=== PATIENT | female | born 1940 | race Two or more races ===

== ENCOUNTER 2023-09-10 20:20 | Inpatient (IN) | payer MEDICARE, OTHER ==
[~2023-09-10] VITALS: Ht 142.2 cm; Wt 53.1 kg
[2023-09-10 21:30] VITALS: BP 114/61; TEMP 98.1; O2SAT 96
[2023-09-10] MEDS ORDERED: CYCL30DR EACHEYE (21:53)
[2023-09-10] MEDS ORDERED: BRIN8DRO OP (21:53)
[2023-09-10] MEDS ORDERED: CEPH500C2 PO (21:53)
[2023-09-10] MEDS ORDERED: VALB40CA2 PO (22:40)
[2023-09-10] MEDS ORDERED: LACT-239 PO (22:40)
[2023-09-10] MEDS ORDERED: PSYL822P6 PO (22:40)
[2023-09-10] MEDS ORDERED: FOLI0.4T6 PO (22:40)
[2023-09-10] MEDS ORDERED: LATA7.5D EACHEYE (22:40)
[2023-09-10] MEDS ORDERED: DOCU250C15 PO (22:40)
[2023-09-10] MEDS ORDERED: ACET650T10 PO (22:40)
[2023-09-10] MEDS ORDERED: MIRT-93 PO (22:40)
[2023-09-10] MEDS ORDERED: MV-M1CAP15 PO (22:40)
[2023-09-10] MEDS ORDERED: ONDA-104 PO (22:40)
[2023-09-10] MEDS ORDERED: PANT40TA2 PO (22:40)
[2023-09-10] MEDS ORDERED: MEMA10TA PO (22:40)
[2023-09-10] MEDS ORDERED: FURO40TA5 PO (22:40)
[2023-09-10] MEDS ORDERED: DOCU100T2 PO (22:40)
[2023-09-10] MEDS ORDERED: FERR325T24 PO (22:40)
[2023-09-10] MEDS ORDERED: QUET50TA PO (22:40)
[2023-09-10] MEDS ORDERED: BENZ200C53 PO (22:40)
[2023-09-11] MEDS ORDERED: REMEDY ESSENTIAL ZINC PASTE 113 GM TOP PRN (04:15)
[2023-09-11 06:40] VITALS: BP 135/50; TEMP 99.5; O2SAT 96
[2023-09-11] MEDS ORDERED: BENZONATATE PO PRN (10:30)
[2023-09-11] MEDS ORDERED: PSYLLIUM HUSK 3.4 GM PO PRN (10:30)
[2023-09-11] MEDS ORDERED: DOCUSATE SODIUM 250 MG CAPSULE PO PRN (10:30)
[2023-09-11] MEDS ORDERED: [UNRECOGNIZED DRUG - OTHER] PO PRN (10:30)
[2023-09-11] MEDS ORDERED: ONDANSETRON HCL 4 MG TABLET PO PRN (12:00)
[2023-09-11] MEDS ORDERED: FOLIC ACID 0.4 MG TABLET PO SCH (12:52)
[2023-09-11] MEDS: PANTOPRAZOLE SODIUM 40 MG TABLET.DR PO SCH (13:37)
[2023-09-11] MEDS: FERROUS SULFATE 325 MG TABEC PO SCH (13:37)
[2023-09-11] MEDS: FUROSEMIDE 40 MG TABLET PO SCH (13:37)
[2023-09-11] MEDS: FOLIC ACID 1 MG TABLET PO SCH (13:48)
[2023-09-11] MEDS: QUETIAPINE FUMARATE 25 MG TABLET PO SCH (14:49)
[2023-09-11] MEDS: DOCUSATE SODIUM 100 MG CAPSULE PO SCH (14:49)
[2023-09-11 15:58] VITALS: BP 120/62; TEMP 100.1; O2SAT 100
[2023-09-11] MEDS: ACETAMINOPHEN 325 MG TABLET PO PRN (17:02)
[2023-09-11] MEDS: MEMANTINE HCL 10 MG TABLET PO SCH (17:02)
[2023-09-11] MEDS: CEphaleXIN 500 MG CAPSULE PO SCH (17:03)
[2023-09-11] MEDS: COMPLEAT MODIFIED FORMULA 1000 ML LIQUID PO SCH (17:12)
[2023-09-11] MEDS: MIRTAZAPINE 15 MG TABLET PO SCH (18:49)
[2023-09-11] MEDS ORDERED: VALBENAZINE TOSYLATE 40 MG PO SCH (21:00)
[2023-09-11] MEDS ORDERED: Medication Not On Formulary EA (Quetiapine Fumarate (Seroquel) 50 MG) PO SCH (21:00)
[2023-09-11 21:20] VITALS: BP 103/42; TEMP 98.6; O2SAT 94
[2023-09-11] MEDS: BENZONATATE 100 MG CAPSULE PO PRN (23:49)
[2023-09-12 06:23] VITALS: BP 93/44; TEMP 98.8; O2SAT 95
[2023-09-12] MEDS ORDERED: Medication Not On Formulary EA (Docusate Sodium 100 MG) PO SCH (09:00)
[2023-09-12 16:00] VITALS: BP 112/40; TEMP 98; O2SAT 98
[2023-09-12 20:00] VITALS: BP 135/44; TEMP 97.9; O2SAT 92
[2023-09-13 06:00] VITALS: BP 109/65; TEMP 98.1; O2SAT 98
[2023-09-13 10:46] LABS: BASOPHILS # (AUTO) 0.1 K/UL (0.0-0.2); BASOPHILS % (AUTO) 1.1 % (0.0-2.0); DIFFERENTIAL COMMENT 0; EOSINOPHILS # (AUTO) 0.3 K/uL (0.0-0.7); EOSINOPHILS % (AUTO) 5.1 % (0.0-7.0); HEMATOCRIT 27.2 % (31.2-41.9); HEMOGLOBIN 8.4 g/dL (10.9-14.3); LYMPHOCYTES # (AUTO) 1.1 K/uL (0.8-4.8); LYMPHOCYTES % (AUTO) 23.2 % (20.5-51.5); MEAN CORPUSCULAR HEMOGLOBIN 25.6 uug (24.7-32.8); MEAN CORPUSCULAR HGB CONC 31 g/dL (32.3-35.6); MONOCYTES # (AUTO) 0.3 K/uL (0.1-1.30); MONOCYTES % (AUTO) 5.4 % (0.0-11.0); NEUTROPHILS # (AUTO) 3.2 K/uL (1.8-8.9); NEUTROPHILS % (AUTO) 65.2 % (38.5-71.5); PLATELET COUNT (AUTO) 243 K/uL (179-408); RED BLOOD CELL COUNT(AUTO) 3.28 MIL/uL (3.63-4.92); RED CELL DISTRIBUTION WIDTH 16.3 % (12.3-17.7)
[2023-09-13 10:57] LABS: CALCIUM 9.2 mg/dL (8.5-10.1); CREATININE 1.1 mg/dL (0.6-1.3); MAGNESIUM 2.7 mg/dL (1.8-2.4); PHOSPHOROUS 3.6 mg/dL (2.5-4.9); POTASSIUM 3.7 mmol/L (3.5-5.1)
[2023-09-13 15:49] VITALS: BP 130/59; TEMP 98.1; O2SAT 96
[2023-09-13 20:00] VITALS: BP 133/51; TEMP 98.3; O2SAT 92
[2023-09-14 06:35] VITALS: BP 145/62; TEMP 99.2; O2SAT 96
[2023-09-14 16:00] VITALS: BP 122/57; TEMP 97.2; O2SAT 97
[2023-09-14 20:00] VITALS: TEMP 98.9
[2023-09-15] VITALS: TEMP 98
[2023-09-15 04:00] VITALS: TEMP 98.7
[2023-09-15] MEDS: DOCUSATE SODIUM 250 MG CAPSULE PO PRN (04:09)
[2023-09-15 06:00] VITALS: TEMP 98.8
[2023-09-15] MEDS: PSYLLIUM SEED PACKET PO PRN (06:14)
[2023-09-15 10:00] VITALS: BP 134/61; TEMP 98; O2SAT 95
[2023-09-15 16:15] VITALS: BP 122/68; TEMP 98; O2SAT 96
[2023-09-15 20:58] VITALS: BP 108/58; TEMP 98.8; O2SAT 93
[2023-09-16 06:34] VITALS: BP 123/60; TEMP 97.8
[2023-09-16 11:53] VITALS: TEMP 97.9
[2023-09-16 15:44] VITALS: BP 98/53; TEMP 97.2; O2SAT 93
[2023-09-16 15:48] VITALS: BP 106/46; TEMP 97.6
[2023-09-16] MEDS: ENSURE WITH FIBER 237 ML LIQUID (CHOCOLATE) PO SCH (17:32)
[2023-09-16 20:00] VITALS: TEMP 98.1
[2023-09-17 06:07] VITALS: BP 140/72; TEMP 98.2; O2SAT 94
[2023-09-17 13:37] LABS: CALCIUM 9.6 mg/dL (8.5-10.1); CREATININE 1.2 mg/dL (0.6-1.3); MAGNESIUM 2.9 mg/dL (1.8-2.4); POTASSIUM 4.1 mmol/L (3.5-5.1)
[2023-09-17 16:29] VITALS: BP 124/58; TEMP 98; O2SAT 95
[2023-09-17] MEDS: MEGESTROL ACETATE 20 MG TABLET PO SCH (17:38)
[2023-09-17 20:00] VITALS: BP 123/63; TEMP 98; O2SAT 94
[2023-09-18 16:49] VITALS: BP 105/49; TEMP 97.7; O2SAT 94
[2023-09-18 20:20] VITALS: BP 103/45; TEMP 98; O2SAT 95
[2023-09-18] MEDS: INGREZZA 40 MG PO SCH (21:25)
[2023-09-19 05:45] VITALS: BP 114/52; TEMP 98.6; O2SAT 97
[2023-09-19 12:00] VITALS: BP 122/61; TEMP 97.5; O2SAT 95
[2023-09-19] MEDS: GLUCERNA SHAKE 237 ML CAN PO SCH (12:13)
[2023-09-19 16:00] VITALS: BP 97/57; TEMP 97.5; O2SAT 95
[2023-09-19] MEDS ORDERED: METFORMIN HCL 500 MG TABLET PO SCH (18:00)
[2023-09-19 20:26] VITALS: BP 101/59; TEMP 98.3; O2SAT 95
[2023-09-20 06:28] VITALS: BP 133/66; TEMP 97.9; O2SAT 66; O2SAT 96
[2023-09-20 16:11] VITALS: BP 128/58; TEMP 98.8; O2SAT 98
[2023-09-20 22:00] VITALS: BP 107/62; TEMP 98.2; O2SAT 96
[2023-09-21 06:00] VITALS: BP 139/62; TEMP 98.8; O2SAT 98
[2023-09-21 08:00] VITALS: BP 145/58; TEMP 98; O2SAT 98
[2023-09-21 16:30] VITALS: BP 125/53; TEMP 97.6; O2SAT 98
[2023-09-21 20:00] VITALS: BP 103/58; TEMP 98.3; O2SAT 94
[2023-09-22 06:46] VITALS: BP 109/67; TEMP 98.1; O2SAT 97
[2023-09-22 13:03] VITALS: BP 106/50; TEMP 98.3; O2SAT 95
[2023-09-22 16:13] VITALS: BP 101/56; TEMP 98.2; O2SAT 98
[2023-09-22 19:45] VITALS: BP 122/50; TEMP 98.2; O2SAT 99
[2023-09-23 16:08] VITALS: TEMP 98.2
[2023-09-23 20:00] VITALS: BP 116/47; TEMP 98.3; O2SAT 95
[2023-09-24 06:15] VITALS: BP 136/50; TEMP 98.4; O2SAT 96
[2023-09-24 08:56] VITALS: TEMP 97.9
[2023-09-24 16:10] VITALS: BP 110/45; TEMP 98.1; O2SAT 97
[2023-09-24 20:40] VITALS: BP 122/54; TEMP 98.6; O2SAT 96
[2023-09-24] MEDS: MEGESTROL ACETATE 400 MG/10 ML LIQUID UDC PO SCH (21:36)
[2023-09-25 12:00] VITALS: BP 103/43; TEMP 98.4; O2SAT 98
[2023-09-25 16:00] VITALS: BP 120/57; TEMP 98.1; O2SAT 95
[2023-09-25 16:22] LABS: THYROID STIMULATING HORMONE 1.053 mIU/mL (0.358-3.740)
[2023-09-25 20:39] VITALS: BP 118/52; TEMP 98; O2SAT 96
[2023-09-26 06:15] VITALS: BP 133/54; TEMP 98.6; O2SAT 97
== END 2023-09-26 15:00 | disposition home health service (06) | DRG 70 ==
PROVIDERS: ADMIT Physical Medicine & Rehabilitation Pain Medicine; ATTEND Physical Medicine & Rehabilitation Pain Medicine
DX: G93.41 Metabolic encephalopathy (principal); N17.0 Acute kidney failure with tubular necrosis; F02.83 Dementia in other diseases classified elsewhere, unspecified severity, with mood disturbance; N17.9 Acute kidney failure, unspecified; N39.0 Urinary tract infection, site not specified; R53.1 Weakness; I10 Essential (primary) hypertension; F32.A Depression, unspecified; G30.9 Alzheimer's disease, unspecified; E86.9 Volume depletion, unspecified; R55 Syncope and collapse; B96.20 Unspecified Escherichia coli [E. coli] as the cause of diseases classified elsewhere; D63.8 Anemia in other chronic diseases classified elsewhere; E11.9 Type 2 diabetes mellitus without complications; E86.0 Dehydration; G24.9 Dystonia, unspecified; H40.9 Unspecified glaucoma; K21.9 Gastro-esophageal reflux disease without esophagitis; R13.10 Dysphagia, unspecified; S00.03XD Contusion of scalp, subsequent encounter; W19.XXXD Unspecified fall, subsequent encounter
CPT/HCPCS: 36415; 83735; 83921; 84100; 84443; 85025; 97535-GO-CO; A4663; A6209; A6213; J8999